=== PATIENT | male | born 1995 | race Caucasian/White ===

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

== ENCOUNTER 2017-05-23 14:10 | Emergency (ER) | payer OTHER ==
[2017-05-23 14:28] VITALS: BP 138/72; PULSE 88; TEMP 98; BMI 31.6
--- NOTE | 2017-05-23 15:29 | PDOC ---
History of Present Illness - General Chief Complaint: Rash Stated Complaint: RASH Time Seen by Provider: 05/23/17 15:17 History Source: Patient Exam Limitations: No Limitations (pt is cognitively aware), Other - History of Present Illness Initial Comments: 05/23/17 15:25 21 y/o male with MR/DD and is high functioning presents with pruritic rash to rt arm since early this am. Patient states told stop around 12 noon of the rash who gave him ice initially followed by injection of Benadryl . He can currently denies itching, fever, change in topicals, recent illness, or new clothes. Patient states this morning area was slightly itchy but worsen by lunchtime. Timing/Duration: reports: this morning Severity: Yes: mild Location: reports: extremities Respiratory Risk Factors: reports: no cause identified Modifying Factors: improves with: antihistamine Associated Symptoms: reports: rash Past History - Travel Traveled outside of the country in the last 30 days: No Close contact w/someone who was outside of country & ill: No - Past Medical History Allergies/Adverse Reactions: Allergies Allergy/AdvReac Type Severity Reaction Status Date / Time No Known Allergies Allergy Verified 05/23/17 14:26 Home Medications: Ambulatory Orders Calcium [Hi-Jarret] 500 mg PO BID 03/25/13 Docusate Sodium [Colace -] 100 mg PO BID 03/25/13 [place] Carbonate 300 mg PO BID 03/25/13 Minocycline HCl 100 mg PO BID 03/25/13 Multivitamin [Multivitamins] 1 each PO DAILY 03/25/13 Risperidone [Risperdal -] 2 mg PO BID 03/25/13 COPD: No Psychiatric Problems: Yes (bipolar. ANXIETY. SLEEP DISORDER. ODD. AGGRESSION.) Other medical history: MODERATE MR. - Suicide/Smoking/Psychosocial Hx Smoking Status: No Smoking History: Never smoked Have you smoked in the past 12 months: No Number of Cigarettes Smoked Daily: 0 Hx Alcohol Use: No Drug/Substance Use Hx: No Substance Use Type: None Patient Lives Alone: No Lives with/in: assisted living Review of Systems - Review of Systems Able to Perform ROS?: Yes Constitutional: No: Symptoms Reported HEENTM: No: Throat Pain, Difficulty Swallowing ABD/GI: No: Symptoms Reported : No: Symptoms Reported Musculoskeletal: No: Symptoms Reported Integumentary: Yes: Pruritus, Rash *Physical Exam - Vital Signs Last Vital Signs Temp Pulse Resp BP Pulse Ox 98 F 88 18 138/72 99 05/23/17 14:23 05/23/17 14:23 05/23/17 14:23 05/23/17 14:23 05/23/17 14:23 - Physical Exam General Appearance: Yes: Nourished, Appropriately Dressed. No: Apparent Distress HEENT: positive: Pharynx Normal. negative: Pale Conjunctivae Neck: positive: Supple Respiratory/Chest: positive: Lungs Clear, Normal Breath Sounds. negative: Respiratory Distress, Accessory Muscle Use, Stridor, Wheezing Extremity: positive: Normal Capillary Refill, Normal Range of Motion. negative : Tender Integumentary: positive: Hives (2 to the medial aspect of upper right with 3 small raised wheals to upper inner bicep. No increased warmth no fluctuance area dry) Medical Decision Making - Medical Decision Making 05/23/17 15:32 Patient here for evaluation of pruritic rash noted this morning. Patient on exam had no acute findings for infection. Patient will be discharged home with recommendations to give Benadryl as needed for itching and topical hydrocortisone. *DC/Admit/Observation/Transfer Diagnosis at time of Disposition: Contact dermatitis - Discharge Dispostion Disposition: HOME Condition at time of disposition: Good - Referrals - Patient Instructions Printed Discharge Instructions: DI for Contact Dermatitis Additional Instructions: Please use hydrocortisone 1% to area twice a day until resolved. May give 25mg of benadryl as needed for itching - Post Discharge Activity
== END 2017-05-23 15:44 | disposition home or self-care (01) ==
LOC: JERFT 14:10
DX: L25.9 Unspecified contact dermatitis, unspecified cause (principal); R62.59 Other lack of expected normal physiological development in childhood; F71 Moderate intellectual disabilities; F31.9 Bipolar disorder, unspecified; F41.9 Anxiety disorder, unspecified; F91.3 Oppositional defiant disorder
CPT/HCPCS: 99281-25

== ENCOUNTER 2017-11-09 12:39 | Emergency (ER) | payer OTHER ==
[2017-11-09 12:47] VITALS: PULSE 88; TEMP 98; BMI 34.2
--- NOTE | 2017-11-09 14:42 | PDOC ---
History of Present Illness - General Chief Complaint: Chest Pain Stated Complaint: CHEST PAIN Time Seen by Provider: 11/09/17 14:35 - History of Present Illness Initial Comments: 11/09/17 14:43 22 yo M with h/o of MR/DD ( Mild intelectual disability), Bipolar disorder, Autism, ADHD, who arrives with chest pain. Pt. is resident at [facility] at [facility] Patient with reports of sharp, L sided, non radiating, non pleuritic CP, while at rehabilitation this AM (1000AM) . Patient states that he developed 5 minutes of CP following adduction of L arm with workout machine. Dr. Song ( [phone]) referred patient to ED for chest pain on exertion. Pain now resolved. Reports transient SOB, now resolved. No other identifiable triggers or alleviators. Pt. reports he is recovering from flu. Denies F/C, orthopnea, PND, leg swelling/pain, cough, hemoptysis, N/V, abdominal pain, diarrhea, constipation, urinary complaints, weakness, lightheadedness, sensory changes. PMHx: as noted above. Denies h/o PE/DVT. Denies h/o ACS/CT, stent placement, CABG, stress testing, or holter monitor. Denies h/o endoscopy. Does not f/w GI or Cardiology. ROS: as noted above SHx: Denies tobacco, Etoh, IVDA. Denies recent traveling, immobilization. Allergies: NKDA Past History - Past Medical History Allergies/Adverse Reactions: Allergies Allergy/AdvReac Type Severity Reaction Status Date / Time No Known Allergies Allergy Verified 11/09/17 12:42 Home Medications: Ambulatory Orders Calcium [Hi-Jarret] 500 mg PO BID 03/25/13 Docusate Sodium [Colace -] 100 mg PO BID 03/25/13 [place] Carbonate 300 mg PO BID 03/25/13 Minocycline HCl 100 mg PO BID 03/25/13 Multivitamin [Multivitamins] 1 each PO DAILY 03/25/13 Risperidone [Risperdal -] 2 mg PO BID 03/25/13 COPD: No DVT: No Psychiatric Problems: Yes (bipolar. ANXIETY. SLEEP DISORDER. ODD. AGGRESSION.) Other medical history: MOD M.R, ADHD,ICD, AGGRESSION, INAPPEROPRIATE SEXUAL COMMENTS, TOUHING - Suicide/Smoking/Psychosocial Hx Smoking Status: No Smoking History: Never smoked Have you smoked in the past 12 months: No Number of Cigarettes Smoked Daily: 0 Information on smoking cessation initiated: No Hx Alcohol Use: No Drug/Substance Use Hx: No Substance Use Type: None Review of Systems - Review of Systems Comments:: 11/09/17 14:42 GENERAL/CONSTITUTIONAL: No fever or chills. No weakness. HEAD, EYES, EARS, NOSE AND THROAT: No change in vision. No ear pain or discharge. No sore throat. CARDIOVASCULAR: + chest pain .No shortness of breath RESPIRATORY: No cough, wheezing, or hemoptysis. GASTROINTESTINAL: No nausea, vomiting, diarrhea or constipation. GENITOURINARY: No dysuria, frequency, or change in urination. MUSCULOSKELETAL: No joint or muscle swelling or pain. No neck or back pain. SKIN: No rash NEUROLOGIC: No headache, vertigo, loss of consciousness, or change in strength/ sensation. ENDOCRINE: No increased thirst. No abnormal weight change HEMATOLOGIC/LYMPHATIC: No anemia, easy bleeding, or history of blood clots. ALLERGIC/IMMUNOLOGIC: No hives or skin allergy. *Physical Exam - Vital Signs Last Vital Signs Temp Pulse Resp BP Pulse Ox 98.0 F 88 18 147/73 100 11/09/17 12:43 11/09/17 12:43 11/09/17 12:43 11/09/17 12:43 11/09/17 12:43 - Physical Exam Comments: 11/09/17 14:44 GENERAL: Awake, alert, and fully oriented, in no acute distress HEAD: No signs of trauma, normocephalic, atraumatic EYES: PERRLA, EOMI, sclera anicteric, conjunctiva clear ENT: Hearing grossly normal, nares patent, oropharynx clear without exudates. Moist mucosa NECK: Normal ROM, supple, no lymphadenopathy, JVD, or masses LUNGS: No distress, speaks full sentences, clear to auscultation bilaterally HEART: Regular rate and rhythm, normal S1 and S2, no murmurs, rubs or gallops, peripheral pulses normal and equal bilaterally. ABDOMEN: Soft, nontender, normoactive bowel sounds. No guarding, no rebound. No masses EXTREMITIES : Normal inspection, Normal range of motion, no edema. No clubbing or cyanosis. SKIN: Warm, Dry, normal turgor, no rashes or lesions noted Moderate Sedation - Procedure Monitoring Vital Signs: Vital Signs Temp Pulse Resp BP Pulse Ox 98.0 F 88 18 147/73 100 11/09/17 12:43 11/09/17 12:43 11/09/17 12:43 11/09/17 12:43 11/09/17 12:43 ED Treatment Course - LABORATORY CBC & Chemistry Diagram: 11/09/17 15:11 11/09/17 15:11 Medical Decision Making - Medical Decision Making 11/09/17 14:50 22 yo M with h/o of MR/DD ( Mild intellectual disability), Bipolar disorder, Autism, ADHD, who arrives with chest pain. VSS, AF. ACS/CT r/o. Low suspicion PE based on Weils criteria. R/o PNA. Will assess for electrolyte abnml, toxic or metabolic derangements,acid-base disturbances, or underlying infection. Possible costochondritis/MSK related chest wall pain. ED Course: CBC, CMP, PT/INR, Cardiac Pr. EKG, CXR UA ASA 162 mg EK11/09/17 15:24 WBC: 17.3 11/09/17 16:26 WBC: 17.3 Trop: Neg EKG: NSR with absent RAHEL, STD or TWI. No acute interval change or axis deviation. Pt. stable for d/c with return precautions. Advised to f/u with PMD. Dr. Song ([phone]) 11/09/17 17:[address] Song and left message about plan to d/c patient. 11/09/17 17:[address] Song and she is aware of pt. status. She has arranged transport back to facility. *DC/Admit/Observation/Transfer Diagnosis at time of Disposition: Chest pain Qualifiers: Chest pain type: unspecified Qualified Code(s): R07.9 - Chest pain, unspecified - Discharge Dispostion Decision to Admit order: No - Referrals Referrals: Kaleb Rios MD [Staff Physician] - - Patient Instructions Printed Discharge Instructions: DI for Chest Pain Additional Instructions: Please return to the emergency department with any new or worsening symptoms or concerns. Please follow up with your primary care physician within 72 hours. - Post Discharge Activity - Attestations Physician Attestion: 11/09/17 14:44 I attest to the information provided in this note.
[2017-11-09 15:15] LABS: BASO % 0.2 % (0-2.0); EOS % 1.1 % (0-4.5); HEMATOCRIT 42.8 % (35.4-49); LYMPH % 10.3 % (8-40); MCHC 32.8 g/dl (32.0-35.9); MEAN CELL VOLUME 85.5 fl (80-96); MEAN PLT VOLUME 8.4 fl (7.5-11.1); MONO % 5.6 % (3.8-10.2); NEUT % 82.8 % (42.8-82.8); PLATELET COUNT 273 K/MM3 (134-434); RBC 5.01 M/mm3 (4.00-5.60); RDW 14.2 % (11.9-15.9); WHITE BLOOD COUNT 17.3 K/mm3 (4.0-10.0)
[2017-11-09] MEDS ORDERED: ASPIRIN 81 MG CHEWABLE TABLETS PO ONE (15:22)
--- NOTE | 2017-11-09 15:34 | PDOC ---
Attending Attestation - Resident Resident Name: Brandon Cantu - ED Attending Attestation I have performed the following: I have examined & evaluated the patient, The case was reviewed & discussed with the resident, I agree w/resident's findings & plan, Exceptions are as noted - HPI HPI: 11/09/17 15:34 22y M hx of bipolar, autism, adhd presents from [facility] by dr. Song by PMD, was doing rehab and started complaining L side nonradiating non pleuritic pain lasting for 5 minute and resolving spontaneously. no asociated syncope, sob, n/v, diaphoresis, numbness/tingling/weakness, trauma. - Physicial Exam PE: exam: gen: well appearing, no distress pulm: cta b/l card: rrr, no m/r/g abd soft nontender - Medical Decision Making suspect msk cause doubt cardiac, inconsistent with pe pts labs noted for leukocytosis w/o left shift - no infectious complaints no signs of pna on cxr pt currently asymptomatic will dc back to [facility], resident had dw dr. song, agree w/ manageemnt Heart Score/ECG Review - ECG Impressions Comment:: 11/09/17 17:24 Twelve-lead EKG was performed and reviewed by me. There is normal sinus rhythm with a normal rate. rate of 75 The axis is normal. The intervals are normal. There is normal R wave progression There are no ST or T wave abnormalities. Impression: Normal twelve-lead EKG
[2017-11-09 15:44] LABS: ANION GAP 6 (8-16); BILIRUBIN,TOTAL 0.4 mg/dL (0.2-1.0); BLOOD UREA NITROGEN 11 mg/dL (7-18); CALCIUM 9.3 mg/dL (8.5-10.1); CHLORIDE 106 mmol/L (98-107); CO2 29 mmol/L (21-32); CREATININE 0.9 mg/dL (0.7-1.3); GLUCOSE,RANDOM 88 mg/dL (74-106); SGOT/AST 16 U/L (15-37); SGPT/ALT 28 U/L (12-78); SODIUM 141 mmol/L (136-145); TOT PROT 7.7 g/dl (6.4-8.2)
[2017-11-09 15:45] LABS: ALK PHOS 213 U/L (45-117); INR 1.05 (0.82-1.09); PROTHROMBIN TIME (PATIENT) 11.9 SEC (9.7-13.0)
--- NOTE | 2017-11-09 16:10 | EKG ---
Test Reason : Blood Pressure : / mmHG Vent. Rate : 075 BPM Atrial Rate : 075 BPM P-R Int : 162 ms QRS Dur : 096 ms QT Int : 366 ms P-R-T Axes : 038 027 043 degrees QTc Int : 408 ms NORMAL SINUS RHYTHM NORMAL ECG WHEN COMPARED WITH ECG OF 22-SEP-2016 10:02, NO SIGNIFICANT CHANGE WAS FOUND Confirmed by MD Rebolledo Daniel ([id number]) on 11/09/2017 4:10:25 PM Referred By: Confirmed By:Harinder Rebolledo MD
[2017-11-09] MEDS ORDERED: ASPIRIN COATED 81 MG TABLET.EC ONE (17:04)
[2017-11-09 18:07] VITALS: BP 137/74
== END 2017-11-09 17:27 | disposition home or self-care (01) ==
LOC: JER 12:39
DX: R07.9 Chest pain, unspecified (principal); F90.8 Attention-deficit hyperactivity disorder, other type; F70 Mild intellectual disabilities; R62.59 Other lack of expected normal physiological development in childhood; F84.0 Autistic disorder
CPT/HCPCS: 36415; 71045-TC-FY; 80053; 82550; 82553; 84484; 85025; 85610; 93005; 93010; 99282-25

== ENCOUNTER 2018-05-30 00:23 | Emergency (ER) | payer OTHER ==
--- NOTE | 2018-05-30 00:33 | PDOC ---
Attending Attestation - HPI HPI: This patient is a 22 year old male, with PMHx of bipolar disorder, autism, adhd , and presents from [facility] for chest pain. Patient states she woke up overnight and noticed 2/10 r sided chest pain, worse with breathing. He states that his symptoms went away by the time that he arrived to the ER. 05/30/18 00:42 - Physicial Exam PE: Agree with resident's exam 05/30/18 00:42 <Sally Laws - Last Filed: 05/30/18 00:42> - Resident Resident Name: Veronica De Paz - ED Attending Attestation I have performed the following: I have examined & evaluated the patient, The case was reviewed & discussed with the resident, I agree w/resident's findings & plan - Medical Decision Making 05/30/18 01:55 Pt comes with CP at the facility that resolved before coming to the ER. 05/30/18 01:56 CXR normal; EKG normal and exam normal 05/30/18 01:56 pt will be sent back to the [place]. <Lizzeth Aldridge - Last Filed: 05/30/18 01:57>
--- NOTE | 2018-05-30 00:39 | PDOC ---
History of Present Illness - General Stated Complaint: CHEST PAIN Time Seen by Provider: 05/30/18 00:25 - History of Present Illness Initial Comments: Arnold Aguilar is a 22yo man with a PMH of mild intellectual disability, bipolar, autism, ADHD who presents from [facility] via ambulance for right- sided chest pain. He reports that he woke up this evening and noticed the pain. The pain was a 2/ 10 in intensity and moved over the right upper chest. He states that he massaged the area and the pain resolved. However, he called the nurse and was sent for evaluation. Mr Aguilar denies any SOB, cough, or continued chest pain at this time. He has not had any recent fever, chills, URI symptoms or any other recent changes to his health. Past History - Past Medical History Allergies/Adverse Reactions: Allergies Allergy/AdvReac Type Severity Reaction Status Date / Time No Known Allergies Allergy Verified 05/30/18 00:37 Home Medications: Ambulatory Orders Calcium [Hi-Jarret] 500 mg PO BID 03/25/13 Docusate Sodium [Colace -] 100 mg PO BID 03/25/13 [place] Carbonate 300 mg PO BID 03/25/13 Minocycline HCl 100 mg PO BID 03/25/13 Multivitamin [Multivitamins] 1 each PO DAILY 03/25/13 Risperidone [Risperdal -] 2 mg PO BID 03/25/13 COPD: No DVT: No Psychiatric Problems: Yes (bipolar. ANXIETY. SLEEP DISORDER. ODD. AGGRESSION.) - Suicide/Smoking/Psychosocial Hx Smoking Status: No Smoking History: Never smoked Have you smoked in the past 12 months: No Number of Cigarettes Smoked Daily: 0 Hx Alcohol Use: No Drug/Substance Use Hx: No Substance Use Type: None Review of Systems - Review of Systems Comments:: General: No fevers, no chills, no weight or appetite change, no malaise HEENT: No changes in vision, no changes in hearing, no congestion, no sore throat CV: +Chest pain. No palpitations, no LE edema Pulm: No SOB, no cough, no wheezing GI: No nausea or vomiting, no change in bowel habits, no melena : No frequency, no urgency, no dysuria Musc: No back pain, no joint swelling, no recent injury Skin: No rash, no lesions, no erythema Endo: No excessive thirst, no heat/cold intolerance Heme: No unusual bruising or bleeding, no swollen glands Neuro: No syncope, no numbness/tingling, no focal weakness Vasc: No claudication Psych: No recent change in mood, no SI or HI *Physical Exam - Physical Exam Comments: General: Comfortable, no acute distress HEENT: PERRL, EOMI, MMM, voice normal, normal neck ROM, no LAD Cards: RRR, no murmur appreciated Pulm: Comfortable on room air, clear to auscultation bilaterally Abd: Soft, nontender, nondistended Ext: Atraumatic. No LE edema. ROM intact. Strength 5/5 and equal bilaterally Vasc: Extremities WWP. Skin: Normal color, no rashes or lesions Neuro: A&Ox3, CN grossly intact, normal speech, motor/sensory grossly intact and symmetric Psych: Mood appropriate to situation Medical Decision Making - Medical Decision Making 05/30/18 00:33 Arnold Aguilar is a 22yo man with a PMH of mild intellectual disability, bipolar, autism, ADHD who presents from [facility] via ambulance for right- sided chest pain that lasted a few minutes before self-resolving prior to arrival in the ED. - Normal physical exam, no abnormalities. Currently no pain or tenderness - EKG and CXR to r/o acute causes of pain - Most likely musculoskeletal. No cough, SOB, fever, nasal congestion suggesting pneumonia or infection, no cardiac history, no current pain, no palpitations 05/30/18 00:43 - EKG reviewed. NSR, HR 73, no abnormalities 05/30/18 01:07 - Xray completed. Poor inspiration, but no focal abnormalities noted. - Discussed results with pt and facility staff (at bedside). Plan to d/c home. Discussed with Dr Khan. Veronica De Paz PGY1 *DC/Admit/Observation/Transfer Diagnosis at time of Disposition: Chest pain - Discharge Dispostion Disposition: HOME Condition at time of disposition: Stable Decision to Admit order: No - Referrals - Patient Instructions Additional Instructions: Discharge Instructions: You were seen in the emergency department for pain on the right upper chest. You had an EKG to check your heart and a chest xray to look at your lungs. Both of these were normal. Your pain is most likely muscular pain. Home Care: - Continue to take all medications you are currently prescribed. - You may use acetaminophen 1000mg every 6-8 hours as needed for continued pain - Applying ice or heat packs to the painful area may help with your symptoms Follow Up: - See your primary doctor within the next week for follow up - Seek immediate medical care if you have squeezing/tight chest pain that does not immediately resolve, is associated with lightheadedness, shortness of breath , and sweating OR is associated with cough, fever to 101F and shortness of breath. - Post Discharge Activity
[2018-05-30 00:40] VITALS: BP 133/93; PULSE 78; TEMP 98; BMI 27.8
--- NOTE | 2018-05-30 15:17 | EKG ---
Test Reason : Blood Pressure : / mmHG Vent. Rate : 073 BPM Atrial Rate : 073 BPM P-R Int : 188 ms QRS Dur : 096 ms QT Int : 372 ms P-R-T Axes : 039 015 045 degrees QTc Int : 409 ms NORMAL SINUS RHYTHM NORMAL ECG WHEN COMPARED WITH ECG OF 09-NOV-2017 12:48, NO SIGNIFICANT CHANGE WAS FOUND Confirmed by MAXIMO PACHECO MD ([id number]) on 05/30/2018 3:17:09 PM Referred By: Confirmed By:MAXIMO PACHECO MD
== END 2018-05-30 03:31 | disposition home or self-care (01) ==
LOC: JER 00:23
DX: R07.89 Other chest pain (principal); F31.9 Bipolar disorder, unspecified; F90.9 Attention-deficit hyperactivity disorder, unspecified type; F79 Unspecified intellectual disabilities; F84.0 Autistic disorder
CPT/HCPCS: 71046-TC-FY; 93005; 93010; 99282-25

== ENCOUNTER 2020-01-30 17:54 | Emergency (ER) | payer OTHER ==
[2020-01-30 18:05] VITALS: BP 112/84; PULSE 80; TEMP 98.7; BMI 26.4
--- NOTE | 2020-01-30 18:55 | PDOC ---
History of Present Illness - General Chief Complaint: Laceration Stated Complaint: INJURY Time Seen by Provider: 01/30/20 18:42 - History of Present Illness Initial Comments: 01/30/20 18:51 24-year-old male with multiple psych issues presents for evaluation of a laceration over his right eye after getting hit with a door today. No loss of consciousness no post injury nausea or vomiting. Patient feels well. Past History - Medical History Allergies/Adverse Reactions: Allergies Allergy/AdvReac Type Severity Reaction Status Date / Time No Known Allergies Allergy Verified 05/30/18 00:37 Home Medications: Ambulatory Orders Calcium [Hi-Jarret] 500 mg PO BID 03/25/13 Docusate Sodium [Colace -] 100 mg PO BID 03/25/13 [place] Carbonate 300 mg PO BID 03/25/13 Minocycline HCl 100 mg PO BID 03/25/13 Multivitamin [Multivitamins] 1 each PO DAILY 03/25/13 Risperidone [Risperdal -] 2 mg PO BID 03/25/13 COPD: No DVT: No Psychiatric Problems: Yes (bipolar. ANXIETY. SLEEP DISORDER. ODD. AGGRESSION.) - Immunization History Immunization Up to Date: No - Psycho-Social/Smoking History Smoking Status: No Smoking History: Never smoked Have you smoked in the past 12 months: No Number of Cigarettes Smoked Daily: 0 Information on smoking cessation initiated: No - Substance Abuse Hx (Audit-C & DAST Scrn) How often the patient has a drink containing alcohol: Never Score: In Men: 4 or > Positive; In Women: 3 or > Positive: 0 Screen Result (Pos requires Nsg. Audit-10AR): Negative In the last yr the pt used illegal drug/Rx for NonMed reason: No Score: Yes response is considered Positive: 0 Screen Result (Positive result requires Nsg. DAST-10): Negative Review of Systems - Review of Systems ABD/GI: No: Nausea, Vomiting *Physical Exam - Vital Signs Last Vital Signs Temp Pulse Resp BP Pulse Ox 98.7 F 80 20 112/84 99 01/30/20 18:03 01/30/20 18:03 01/30/20 18:03 01/30/20 18:03 01/30/20 18:03 - Physical Exam 01/30/20 18:53 GENERAL: The patient is awake, alert, and fully oriented, in no acute distress. HEAD: Normal Superficial laceration obliquely oriented on the lateral aspect of the right eyebrow. The wounds edges are well approximated. The edges cannot be opened up. There is no subcutaneous fat exposed only dried blood on the surface. EYES: sclera anicteric, conjunctiva clear. NECK: Normal range of motion EXTREMITIES: Normal range of motion, no edema. No clubbing or cyanosis. No cords, erythema, or tenderness. NEUROLOGICAL: Cranial nerves II through XII grossly intact. PSYCH: Normal mood, normal affect. SKIN: Warm, Dry, normal turgor, no rashes or lesions noted. Medical Decision Making - Medical Decision Making 01/30/20 18:54 Wound was cleaned with normal saline and left open to air. Case discussed with physician at the facility who agrees with the plan. Wound check in 48 hours. Plan discussed with physician at facility who is on board and in agreement. Discharge - Discharge Information Problems reviewed: Yes Clinical Impression/Diagnosis: Laceration of eyebrow, right Condition: Stable Disposition: HOME - Admission No - Follow up/Referral Referrals: Hilary Song MD [Primary Care Provider] - - Patient Discharge Instructions Additional Instructions: Return to the emergency room for further issues and without fail follow-up with your primary care physician in 1 to 2 days for wound check. Return to the emergency sooner if problems develop or in 48 hours for a wound check problems including redness swelling or drainage or increasing pain to the area of the laceration. Please keep the laceration clean with soap and water and left open to air as much as possible. Please do not apply any ointments or salves such as bacitracin or Neosporin. - Post Discharge Activity
== END 2020-01-30 18:57 | disposition home or self-care (01) ==
LOC: JERFT 17:54
DX: S01.111A Laceration without foreign body of right eyelid and periocular area, initial encounter (principal)
CPT/HCPCS: 99282-25